=== PATIENT | female | born 1985 | race Caucasian/White ===

== ENCOUNTER 2020-04-24 00:57 | Inpatient (IN) | payer MEDICAID ==
[~2020-04-24] VITALS: Ht 157.5 cm; Wt 88.9 kg
[~2020-04-24 00:57] MED LIST: FERR-63 PO; FOLI-43 PO; PREN1TAB46 PO
[2020-04-24] MEDS ORDERED: DEXT 5%/LR + PITOCIN 20UNITS/L 1,000 ML IV SCH ×2 (02:55→05:29)
[2020-04-24] MEDS ORDERED: LACTATED RINGERS 1,000 ML IV SCH (02:55)
[2020-04-24] MEDS ORDERED: METHYLERGONOVINE MALEATE 0.2 MG/ML IM PRN ×2 (03:00→05:30)
[2020-04-24] MEDS ORDERED: BUTORPHANOL TARTRATE 2 MG/ML VIAL IV PRN (03:00)
[2020-04-24] MEDS ORDERED: MISOPROSTOL 100MCG TABLET VG SCH (03:00)
[2020-04-24] MEDS ORDERED: RHO(D) IMMUNE GLOBULIN 300 MCG/SYR IM PRN ×2 (03:00→05:30)
[2020-04-24] MEDS ORDERED: PENICILLIN G POTASSIUM 5 MMU in DEXT 5% WATER 100 ML IV SCH (03:30)
[2020-04-24 03:39] LABS: BASOPHILS % 0.9 % (0.0-2.0); EOSINOPHILS % 0.7 % (0.0-5.0); HEMOGLOBIN. 10.3 g/dL (12.0-16.0); LYMPHOCYTES % 24.5 % (20.0-50.0); MEAN CORPUSCULAR HEMOGLOBIN 27.9 pg (28.0-32.0); MEAN CORPUSCULAR VOLUME 83.8 fL (81.0-99.0); MEAN PLATELET VOLUME 10.1 fl (7.4-10.4); MONOCYTES % 3.4 % (2.0-8.0); NEUTROPHILS % 70.5 % (40.0-76.0); PLATELET 199 x1000/uL (130-400); RED CELL DISTRIBUTION WIDTH 16.2 % (11.6-14.6)
[2020-04-24 03:45] LABS: INR 0.9; PARTIAL THROMBOPLASTIN TIME 28.1 sec (23.4-31.0); PROTHROMBIN TIME 10.1 sec (9.6-11.0)
[2020-04-24 04:33] LABS: HEPATITIS B SURFACE ANTIGEN NEGATIVE
[2020-04-24] MEDS ORDERED: DIPHENHYDRAMINE 25MG CAPSULE PO PRN (05:30)
[2020-04-24] MEDS ORDERED: IBUPROFEN 400MG TABLET PO PRN (05:30)
[2020-04-24] MEDS ORDERED: LANOLIN OINT 7GM TUBE TOP PRN (05:30)
[2020-04-24 06:15] VITALS: BP 99/44
[2020-04-24 07:30] VITALS: BP 97/55
[2020-04-24] MEDS ORDERED: PENICILLIN G POTASSIUM 2.5 MMU in DEXTROSE 5% WATER 50 ML IV SCH (08:00)
[2020-04-24 12:29] LABS: CLARITY URINE CLOUDY (CLEAR); COLOR URINE RED (YELLOW); KETONES URINE 1+ (NEGATIVE); LEUKOCYTE ESTERASE URINE 1+ (NEGATIVE); NITRITE URINE NEGATIVE (NEGATIVE); OCCULT BLOOD URINE 3+ (NEGATIVE); PH URINE 6.5 (4.5-8.0); PROTEIN URINE 1+ (NEGATIVE); SPECIFIC GRAVITY URINE 1.024 (1.005-1.030)
[2020-04-24 14:32] LABS: *AMPHETAMINES SCREEN URINE NEGATIVE (NEGATIVE); *BARBITURATES SCREEN URINE NEGATIVE (NEGATIVE); CANNABINOID URINE SCREEN NEGATIVE (NEGATIVE); METHADONE URINE SCREEN NEGATIVE (NEGATIVE); OPIATES URINE SCREEN NEGATIVE (NEGATIVE); PHENCYCLIDINE URINE SCREEN NEGATIVE (NEGATIVE)
[2020-04-24 14:33] LABS: *BENZODIAZEPINES SCREEN URINE NEGATIVE (NEGATIVE); *COCAINE SCREEN URINE NEGATIVE (NEGATIVE)
[2020-04-24 15:32] VITALS: BP 98/44
[2020-04-24] MEDS: PRENATAL VIT/FE FUMARATE/FA TABLET PO SCH (17:09)
[2020-04-24] MEDS: IBUPROFEN 800MG TABLET PO PRN ×2 (17:09→23:00)
[2020-04-24 19:30] VITALS: BP 101/51
[2020-04-25 04:00] VITALS: BP 91/47
[2020-04-25 06:52] LABS: BASOPHILS % 0.6 % (0.0-2.0); EOSINOPHILS % 1.8 % (0.0-5.0); HEMATOCRIT. 26.2 % (36.0-48.0); HEMOGLOBIN. 8.6 g/dL (12.0-16.0); LYMPHOCYTES % 32.5 % (20.0-50.0); MEAN CORPUSCULAR HEMOGLOBIN 27.8 pg (28.0-32.0); MEAN CORPUSCULAR VOLUME 84.3 fL (81.0-99.0); MEAN PLATELET VOLUME 9.7 fl (7.4-10.4); MONOCYTES % 4.1 % (2.0-8.0); PLATELET 166 x1000/uL (130-400); RED CELL DISTRIBUTION WIDTH 15.9 % (11.6-14.6)
[2020-04-25 07:38] VITALS: BP 103/53
[2020-04-25] MEDS: PRENATAL VIT/FE FUMARATE/FA TABLET PO SCH (08:51)
[2020-04-25] MEDS: IBUPROFEN 800MG TABLET PO PRN (08:52)
[2020-04-25 13:10] LABS: BASOPHILS % 0.6 % (0.0-2.0); EOSINOPHILS % 2.6 % (0.0-5.0); HEMATOCRIT. 27.6 % (36.0-48.0); HEMOGLOBIN. 9.2 g/dL (12.0-16.0); LYMPHOCYTES % 26.1 % (20.0-50.0); MEAN CORPUSCULAR HEMOGLOBIN 27.7 pg (28.0-32.0); MEAN CORPUSCULAR VOLUME 83.2 fL (81.0-99.0); MEAN PLATELET VOLUME 9.6 fl (7.4-10.4); MONOCYTES % 4.2 % (2.0-8.0); NEUTROPHILS % 66.5 % (40.0-76.0); PLATELET 178 x1000/uL (130-400); RED BLOOD CELL COUNT 3.31 mill/uL (4.2-5.4); RED CELL DISTRIBUTION WIDTH 15.8 % (11.6-14.6)
== END 2020-04-25 12:30 | disposition home or self-care (01) | DRG 560 ==
LOC: 8 EST LDRP 00:57 → OBSVTOIN 00:57 → 8EST 06:10
PROVIDERS: ADMIT Obstetrics & Gynecology; ATTEND Obstetrics & Gynecology
PROC: 10E0XZZ Delivery of Products of Conception, External Approach (ICD-10-PCS; principal; 2020-04-24)
DX: O48.0 Post-term pregnancy (principal); Z37.0 Single live birth; Z3A.40 40 weeks gestation of pregnancy
CPT/HCPCS: 36415; 80305; 81003; 85025; 86592; 86703; 86762; 86850; 86900; 87340; 99281; J2540; J2590; J7060

== ENCOUNTER 2020-05-26 18:29 | Emergency (ER) | payer MEDICAID ==
[~2020-05-26] VITALS: Ht 157.5 cm; Wt 76.0 kg
[2020-05-26] MEDS ORDERED: KETOROLAC 30MG/ML VIAL IV STA (19:01)
[2020-05-26] MEDS ORDERED: SODIUM CHLORIDE 0.9% 1,000 ML IV ONE (19:01)
[2020-05-26] MEDS ORDERED: ONDANSETRON HCL 4MG/2ML INJ IV STA (19:01)
[2020-05-26 19:28] LABS: BASOPHILS % 1.6 % (0.0-2.0); EOSINOPHILS % 2.5 % (0.0-5.0); HEMATOCRIT. 33.8 % (36.0-48.0); HEMOGLOBIN. 11.2 g/dL (12.0-16.0); LYMPHOCYTES % 47.4 % (20.0-50.0); MEAN CORPUSCULAR HEMOGLOBIN 26.5 pg (28.0-32.0); MEAN CORPUSCULAR VOLUME 80.2 fL (81.0-99.0); MEAN PLATELET VOLUME 9.4 fl (7.4-10.4); MONOCYTES % 4.4 % (2.0-8.0); NEUTROPHILS % 44.1 % (40.0-76.0); PLATELET 208 x1000/uL (130-400); RED BLOOD CELL COUNT 4.21 mill/uL (4.2-5.4); RED CELL DISTRIBUTION WIDTH 16.8 % (11.6-14.6)
[2020-05-26 19:34] LABS: CHLORIDE 107 mEq/L (98-107)
[2020-05-26 19:37] LABS: PROTHROMBIN TIME 10.1 sec (9.6-11.0)
[2020-05-26 21:27] VITALS: BP 102/54
== END 2020-05-26 21:29 | disposition home or self-care (01) ==
LOC: ER 18:33
DX: K80.50 Calculus of bile duct without cholangitis or cholecystitis without obstruction (principal); K76.0 Fatty (change of) liver, not elsewhere classified
CPT/HCPCS: 36415; 76705; 80053; 83690; 85025; 85610; 93005; 96374; 96375; 99284; J1885; J2405; J7030

== ENCOUNTER 2022-10-06 20:14 | Emergency (ER) | payer MEDICAID ==
[~2022-10-06 20:14] MED LIST changes: -FERR-63 PO; +FERR325T23 PO; -FOLI-43 PO; +IBUP-2030 PO; -PREN1TAB46 PO
== END 2022-10-07 00:27 | disposition left against medical advice (07) ==
LOC: ER 20:14
DX: Z53.21 Procedure and treatment not carried out due to patient leaving prior to being seen by health care provider (principal)

== ENCOUNTER 2024-03-11 00:13 | Emergency (ER) | payer MEDICAID ==
[~2024-03-11] VITALS: Ht 157.5 cm; Wt 59.0 kg
[2024-03-11 00:18] VITALS: O2SAT 99
[2024-03-11 02:15] LABS: BASOPHILS % 0.4 % (0.0-2.0); EOSINOPHILS % 1.4 % (0.0-5.0); HEMATOCRIT. 34.9 % (36.0-48.0); HEMOGLOBIN. 11.5 g/dL (12.0-16.0); LYMPHOCYTES % 11.2 % (20.0-50.0); MEAN CORPUSCULAR HEMOGLOBIN 27.5 pg (28.0-32.0); MEAN CORPUSCULAR HGB CONC 33.1 g/dL (31.0-37.0); MEAN CORPUSCULAR VOLUME 83.2 fL (81.0-99.0); MEAN PLATELET VOLUME 7.8 fl (7.4-10.4); MONOCYTES % 7.8 % (2.0-8.0); NEUTROPHILS % 79.2 % (40.0-76.0); PLATELET 365 x1000/uL (130-400); RED CELL DISTRIBUTION WIDTH 18.3 % (11.6-14.6); WHITE BLOOD COUNT 14.2 x1000/uL (4.5-11.0)
[2024-03-11 02:25] LABS: HCG SCREEN NEGATIVE
[2024-03-11] MEDS: ONDANSETRON 4MG ODT PO STA (02:27)
[2024-03-11 02:30] LABS: CLARITY URINE CLOUDY (CLEAR); COLOR URINE YELLOW (YELLOW); GLUCOSE URINE NEGATIVE (NEGATIVE); KETONES URINE NEGATIVE (NEGATIVE); LEUKOCYTE ESTERASE URINE 3+ (NEGATIVE); NITRITE URINE NEGATIVE (NEGATIVE); OCCULT BLOOD URINE 2+ (NEGATIVE); PROTEIN URINE TRACE (NEGATIVE); SPECIFIC GRAVITY URINE 1.012 (1.005-1.030); UROBILINOGEN URINE 0.2 E.U./dL (0.2-1.0)
[2024-03-11 02:49] LABS: WBC URINE TNTC /hpf (0-2)
[2024-03-11 02:50] LABS: BACTERIA URINE 1+; MUCUS URINE 1+ /lpf (< = 2+); SQUAMOUS EPITHELIAL CELL URINE 2+ /lpf (RARE/1+)
[2024-03-11] MEDS: DICYCLOMINE 10 MG/5 ML ORAL SYR PO STA (03:00)
[2024-03-11] MEDS ORDERED: CIPR500T5 MT (03:06)
[2024-03-11] MEDS ORDERED: ONDA4TAB11 PO (03:06)
[2024-03-11 03:26] VITALS: BP 111/65; PULSE 82; RESP 20; TEMP 98.1
== END 2024-03-11 03:28 | disposition home or self-care (01) ==
LOC: ER 00:13
DX: R11.2 Nausea with vomiting, unspecified (principal); R30.0 Dysuria; I10 Essential (primary) hypertension; Z20.822 Contact with and (suspected) exposure to COVID-19
CPT/HCPCS: 99283; 87426; 81003; 81025; 84703; 85025; 87086; 87186; 87804 ×2; 87077; 36415; Q0162

== ENCOUNTER 2024-03-14 17:41 | Emergency (ER) | payer MEDICAID, OTHER ==
[~2024-03-14] VITALS: Ht 162.6 cm; Wt 73.0 kg
[~2024-03-14 17:41] MED LIST changes: +CIPR500T5 MT; +ONDA4TAB11 PO
[2024-03-14 17:44] VITALS: BP 106/55; PULSE 93; RESP 18; TEMP 98.6; O2SAT 98
== END 2024-03-14 20:14 | disposition left against medical advice (07) ==
LOC: ER 17:41
DX: R07.89 Other chest pain (principal); Z53.21 Procedure and treatment not carried out due to patient leaving prior to being seen by health care provider
CPT/HCPCS: 99283